=== PATIENT | male | born 1970 | race Caucasian/White ===

== ENCOUNTER 2018-11-28 09:56 | Emergency (ER) | payer BC ==
--- NOTE | 2018-11-28 11:34 | ER Document Report ---
ED Medical Screen (RME) - General Chief Complaint: Low Back Pain Stated Complaint: TESTICLE PAIN Time Seen by Provider: 11/28/18 11:32 Primary Care Provider: OTILIO FLORES MD [Primary Care Provider] - Follow up as needed Mode of Arrival: Ambulatory Information source: Patient Notes: Patient is a 47-year-old male who presents the emergency department with chief complaint of left low back pain that radiates around his left flank into his left testicle. Patient reports history of inguinal hernia in the past with repair. He states this feels similar to that. He denies any history of kidney stones, denies any hematuria. Patient has not had any nausea, vomiting, diarrhea and declines need for any pain medication. Exam: Patient calm, cooperative and in no acute distress. Ambulates without difficulty. I have greeted and performed a rapid initial assessment of this patient. A comprehensive ED assessment and evaluation of the patient, analysis of test results and completion of the medical decision making process will be conducted by additional ED providers. Dictation of this chart was performed using voice recognition software; therefore, there may be some unintended grammatical errors. TRAVEL OUTSIDE OF THE [place] IN LAST 30 DAYS: No - Related Data Allergies/Adverse Reactions: No Known Allergies Allergy (Verified 11/28/18 10:08) Past Medical History - Past Medical History Cardiac Medical History: Reports: Hx Hypertension - NOT ON MEDS AT THIS TIME Denies: Hx Heart Attack Pulmonary Medical History: Denies: Hx Asthma Neurological Medical History: Denies: Hx Cerebrovascular Accident, Hx Seizures GI Medical History: Denies: Hx Hepatitis, Hx Hiatal Hernia, Hx Ulcer Infectious Medical History: Denies: Hx Hepatitis Past Surgical History: Denies: Hx Open Heart Surgery, Hx Pacemaker Physical Exam - Vital signs Vitals: Temp Pulse Resp BP Pulse Ox 98.5 F 71 15 144/87 H 100 11/28/18 10:11 11/28/18 10:11 11/28/18 10:11 11/28/18 10:11 11/28/18 10:11 Course - Vital Signs Vital signs: Temp Pulse Resp BP Pulse Ox 98.5 F 71 15 144/87 H 100 11/28/18 10:11 11/28/18 10:11 11/28/18 10:11 11/28/18 10:11 11/28/18 10:11 Doctor's Discharge - Discharge Referrals: OTILIO FLORES MD [Primary Care Provider] - Follow up as needed
[2018-11-28 12:15] LABS: APPEARANCE,URINE CLEAR; BILIRUBIN,URINE NEGATIVE (NEGATIVE); COLOR,URINE STRAW; GLUCOSE, URINE NEGATIVE (NEGATIVE); KETONES,URINE NEGATIVE (NEGATIVE); LEUKOCYTE ESTERASE,URINE NEGATIVE (NEGATIVE); NITRITE,URINE NEGATIVE (NEGATIVE); PROTEIN,URINE NEGATIVE (NEGATIVE); UROBILINOGEN,URINE NEGATIVE mg/dL (<2.0)
--- NOTE | 2018-11-28 13:31 | ER Document Report ---
Doctor's Note Notes: 11/28/18 13:29 Radiologist called stating that patient has a testicular torsion. Patient upgraded to MITCHELL 2, charge nurse made aware so the patient can be placed expeditiously to a bed in the main side.
--- NOTE | 2018-11-28 13:38 | RADIOLOGY REPORT (SQ) ---
EXAM DESCRIPTION: U/S SCROTUM W/DOPPLER COMPLETED DATE/TIME: 11/28/2018 1:20 pm REASON FOR STUDY: Right testicular pain Pain in the right scrotum for 3 days COMPARISON: None. TECHNIQUE: Static and realtime sales scale imaging of the scrotum and testes. Selected color Doppler and spectral images recorded to document blood flow. LIMITATIONS: None. FINDINGS: RIGHT: TESTICLE: Normal size, 2.9 x 2.3 x 2.1 cm in size. Normal echotexture. We were unable to obtain colo r flow or Doppler signal from the right testicle. Patient was examined on 2 different ultrasound uni ts. EPIDIDYMIS: Normal size, 1 cm benign epididymal cyst HYDROCELE OR VARICOCELE: No. HERNIA OR EXTRA-TESTICULAR MASS: No. OTHER: No other significant finding. LEFT: TESTICLE: Normal size, 3 x 1.8 x 1.8 cm in size. Normal echotexture. Normal blood flow. No mass. EPIDIDYMIS: Normal. HYDROCELE OR VARICOCELE: No. HERNIA OR EXTRA-TESTICULAR MASS: No. OTHER: No other significant finding. IMPRESSION: Absent right testicular color flow and Doppler waveforms due to right testicular torsion . This report was called to Dr. Montoya in the emergency room 1325 hours, 11/28/2018 COMMENT: Pertinent findings on the imaging study reported as a CRITICAL RESULT to Dr. Montoya at13:25 on 11/28/2018. Category of Critical Result: Right testicular torsion TECHNICAL DOCUMENTATION: JOB ID: [id number] [employer]- All Rights Reserved Reading location - IP/workstation name: [email or web address]
--- NOTE | 2018-11-28 15:26 | RADIOLOGY REPORT (SQ) ---
EXAM DESCRIPTION: CT LTD RENAL STONE PROTOCOL ON COMPLETED DATE/TIME: 11/28/2018 2:49 pm REASON FOR STUDY: Bilateral lumbar back pain, left testicular pain COMPARISON: None. TECHNIQUE: CT scan of the abdomen and pelvis performed without intravenous or oral contrast. Images reviewed with lung, soft tissue, and bone windows. Reconstructed coronal and sagittal MPR images revi ewed. All images stored on PACS. All CT scanners at this facility use dose modulation, iterative reconstruction, and/or weight based d osing when appropriate to reduce radiation dose to as low as reasonably achievable (ALARA). [facility]: Dose Right [facility]: CareDose [facility]: Dose Right [facility]: Teradose 4D [facility]: Smart Noosh RADIATION DOSE: CT Rad equipment meets quality standard of care and radiation dose reduction techniq ues were employed. CTDIvol: 9.5 mGy. DLP: 562 mGy-cm.mGy. LIMITATIONS: None. FINDINGS: LOWER CHEST: No significant findings. No nodules or infiltrates. NON-CONTRASTED LIVER, SPLEEN, ADRENALS: Evaluation limited by lack of IV contrast. No identified sign ificant masses. PANCREAS: No masses. No peripancreatic inflammatory changes. GALLBLADDER: No identified stones by CT criteria. No inflammatory changes to suggest cholecystitis. RIGHT KIDNEY AND URETER: No suspicious masses. Assessment limited by lack of IV contrast. No signif icant calcifications. No hydronephrosis or hydroureter. LEFT KIDNEY AND URETER: No suspicious masses. Assessment limited by lack of IV contrast. No signifi cant calcifications. No hydronephrosis or hydroureter. AORTA AND RETROPERITONEUM: No aneurysm. No retroperitoneal masses or adenopathy. BOWEL AND PERITONEAL CAVITY: Pericolonic fat stranding and mucosal edema in the sigmoid colon associa roselia with diverticular. Diverticulitis. No perforation abscess. APPENDIX: Normal. PELVIS, BLADDER, AND ABDOMINAL WALL:No abnormal masses. No free fluid. Bladder normal. BONES: No significant findings. OTHER: No other significant finding. IMPRESSION: Sigmoid diverticulitis without perforation or abscess. COMMENT: Quality ID # [id number]: Final reports with documentation of one or more dose reduction techniques (e.g., Automated exposure control, adjustment of the mA and/or kV according to patient size, use of iterative reconstruction technique) TECHNICAL DOCUMENTATION: JOB ID: [id number]- All Rights Reserved Reading location - IP/workstation name: [email or web address]
[2018-11-28] MEDS ORDERED: PROMETHAZINE HCL 25 MG TABLET PO ONE (15:35)
[2018-11-28] MEDS ORDERED: CIPROFLOXACIN HCL 500 MG TABLET PO ONE (15:35)
[2018-11-28] MEDS ORDERED: OXYCODONE-ACETAMINOPHEN 5-325 MG TABLET PO ONE (15:36)
[2018-11-28] MEDS ORDERED: METRONIDAZOLE 500 MG TABLET PO ONE (15:36)
--- NOTE | 2018-11-28 16:37 | ER Document Report ---
ED GI/ - General Chief Complaint: Low Back Pain Stated Complaint: TESTICLE PAIN Time Seen by Provider: 11/28/18 11:32 Primary Care Provider: OTILIO FLORES MD [Primary Care Provider] - Follow up in 3-5 days FANNY RUELAS MD [NO LOCAL MD] - Follow up tomorrow Mode of Arrival: Ambulatory Notes: Patient has been experiencing lower lumbar back pain bilaterally for nearly a week. Recalls no unusual activity or injury. Then, on Sunday, 4 days ago, he seemed to think that that pain to the testicle got better on Sunday, but came back yesterday. It was very severe last evening and the patient took some leftover oxycodones but they did not seem to help much at all so he took a sleeping pill to sleep last night. He said that sitting seems to make it worse, such as driving a vehicle. Standing makes the pain better. Says he did some very vigorous heavy lifting and work yesterday afternoon, but does not know if that made it any better or worse. Has not had any UTI symptoms. No discomfort with urination. No blood in urine. Never had kidney stones. Has not had any recent fevers. No vomiting or diarrhea. Patient recalls a hernia that was repaired 10 or 12 years ago and felt very similar in pain to what he is experiencing now. Patient has been on testosterone injections every couple of weeks for the past 10-12 years. TRAVEL OUTSIDE OF THE [place] IN LAST 30 DAYS: No - Related Data Allergies/Adverse Reactions: No Known Allergies Allergy (Verified 11/28/18 10:08) Past Medical History - General Information source: Patient - Social History Smoking Status: Unknown if Ever Smoked Family History: Reviewed & Not Pertinent Patient has suicidal ideation: No Patient has homicidal ideation: No - Past Medical History Cardiac Medical History: Reports: Hx Hypertension - NOT ON MEDS AT THIS TIME Pulmonary Medical History: Denies: Hx Asthma Renal/ Medical History: Reports: Other - Once told he had a cystocele. Denies: Hx Kidney Stones, Hx Testicular Torsion GI Medical History: Denies: Hx Crohn's Disease, Hx Diverticulitis Past Surgical History: Reports: Hx Herniorrhaphy Review of Systems - Review of Systems Notes: REVIEW OF SYSTEMS: CONSTITUTIONAL : Denies fever. EENT: Denies eye, ear, nose or mouth or throat pain or other symptoms. CARDIOVASCULAR: Denies chest pain. RESPIRATORY: Denies cough, chest congestion, or shortness of breath. GASTROINTESTINAL: See HPI. GENITOURINARY: See HPI. Denies difficulty or painful urinating, urinary frequency, blood in urine. MUSCULOSKELETAL: Denies neck pain. Denies joint pain or swelling. SKIN: Denies rash or skin lesions. NEUROLOGICAL: Denies LOC or altered mental status. Denies headache. Denies sensory loss or motor deficits. ALL OTHER SYSTEMS REVIEWED AND NEGATIVE. Physical Exam - Vital signs Vitals: Temp Pulse Resp BP Pulse Ox 98.5 F 71 15 144/87 H 100 11/28/18 10:11 11/28/18 10:11 11/28/18 10:11 11/28/18 10:11 11/28/18 10:11 Interpretation: Normal Notes: PHYSICAL EXAMINATION: GENERAL: Well-appearing, in no acute distress. Vital signs are all normal. Does not appear to be in a large amount of pain at this time. HEAD: Atraumatic, normocephalic. EYES: Pupils equal round and reactive to light, extraocular movements intact. ENT: oropharynx clear without exudates. Moist mucous membranes. NECK: Normal range of motion, supple. LUNGS: Breath sounds clear and equal bilaterally. HEART: Regular rate and rhythm without murmurs. ABDOMEN: Soft, nontender. No guarding or rebound. No masses. Genitourinary exam: Palpated both testicles. Neither of them is swollen and neither are tender. Neither of them appear to be anything that would be the source of the patient's pain. Skin is not erythematous. No fluctuance noted. BACK: No tenderness throughout entire back. EXTREMITIES: Normal range of motion without pain. NEUROLOGICAL: Normal speech, normal gait. Normal sensory, motor, and reflex exams. Awake, alert, and oriented x3. Cranial nerves normal. PSYCH: Normal mood, normal affect. SKIN: Warm, dry, no rashes. Course - Re-evaluation Re-evalutation: 11/28/18 18:40 Patient's ultrasound showed torsion of the right testicle and a normal left testicle. Radiology was concerned about the findings not matching with the complaint and did the same examination with a second ultrasound machine and got the same results. The radiologist is certain that the right testicle has a torsion in the left one is normal. I opted to do a CT scan of the abdomen and pelvis on the possibility that the patient might have a left renal calculus that is causing referred pain to the testicle, which is a known situation and I have seen many times. Patient CT scan shows diverticulitis of the sigmoid colon! Patient is being started on metronidazole 500 mg twice a day and Cipro 500 mg twice a day for the next 10 days. 11/28/18 18:43 Went over all the findings with the patient and his . Told the patient that I do not see how he could be experiencing pain from the either testicle because they are completely normal to examine without any pain on touching or movement, etc. The pain in the left testicle but the right testicle being torsed is only likely if the patient has an old or chronic torsion of the right testicle. Radiologist suggested that possibility and also the possibility that the patient may be having intermittent torsion left testicle. I made the patient an appointment to see Dr. Ruelas, urologist in [place], tomorrow at 1:15 PM. Patient was provided with all the documents from his visit here today. I stressed to him the importance of keeping that appointment even though the pain that he has been experiencing is likely from the diverticulitis we have discovered. He does have evidence of a torsion of the right testicle, which is likely not viable, and he needs to have that evaluated by a urologist. Patient was advised to return if his pain worsens significantly, if he develops severe vomiting and cannot keep down medications, or if he starts running significant fevers, more than 100 degrees. - Vital Signs Vital signs: Temp Pulse Resp BP Pulse Ox 97.9 F 77 18 134/88 H 100 11/28/18 16:50 11/28/18 16:50 11/28/18 16:50 11/28/18 16:50 11/28/18 16:50 - Laboratory Laboratory results interpreted by me: 11/28/18 11:58 Urine Ascorbic Acid 20 H Discharge - Discharge Clinical Impression: Left testicular pain, Torsion of right testicle, Sigmoid diverticulitis Condition: Stable Disposition: HOME, SELF-CARE Additional Instructions: Testicular Pain Sometimes we can't prove the exact cause of testicle pain. Pain in the testicle can be caused by many different problems, including viral infections of the testicle, urinary tract infection, kidney stones, inflammation of the epididymis (the sac behind the testicle), hernia, dilated veins in the scrotum, or subtle injury. The most serious causes of testicular pain are tumor or twisting of the testicle. An ultrasound exam often shows what's wrong. When the initial testing doesn't show a cause for the pain, we usually refer to a urologist. Rest. Gentle warmth may help with symptoms. It's usually helpful to wear underwear that gives good support to the testicles ("briefs" instead of "boxers"). Call the doctor or return if there is sudden worsening of pain, fever, vomiting, testicle swelling, or discoloration of the scrotum. No definite cause was found for your left testicular pain. Your ultrasound showed good blood flow into that left testicle. My examination of that testicle is normal. The ultrasound did find that you have a torsion of the right testicle, but since she do not have any pain in the right testicle, this may be an old occurrence. You have an appointment to see Dr. Ruelas, tomorrow at 1:15 PM in [place]. His address is [address] [place] [address] in [place]. I strongly recommend you go see him, even though we found that you have diverticulitis. Diverticulitis of the sigmoid colon: You have been diagnosed as having diverticulitis. This is an inflammation of a small pouch attached to the colon, called a diverticulum. Many of these small pouches can form on the colon as you get older. They are often caused by constipation. When inflamed or infected, symptoms arise -- usually abdominal pain, constipation or diarrhea, fever, and blood in the stool. Severe diverticulitis may require hospitalization. More mild cases are usually treated with antibiotics and clear liquid diet. As you improve, a diet low in residue (one which forms little stool) is prescribed. When you are better, you should eat a high-fiber diet. Stool softeners (like Metamucil) are usually recommended. Call the doctor or go to the hospital if there is increasing pain, vomiting, high fever, large amounts of blood passed, or if bowel movements cease. ABDOMINAL PAIN: There are many causes of abdominal pain. Pain can mean a serious problem requiring surgery (such as appendicitis). It can also be an innocent problem that goes away on its own (such as a viral infection). Often, time must pass to determine the cause of pain. The physician does not feel that hospitalization is necessary, at present. Things may change within the next 24 hours. Call the doctor or come back for re- examination if any problems occur, such as: (1) Pain that becomes more severe, steady, or becomes concentrated in one specific area. Also, pain that is more severe with movement or coughing. (2) Vomiting that persists or becomes more frequent. (3) Blood in the vomitus, urine, or bowel movements. Blood in the stool may have a tarry or black appearance. (4) Shaking chills or fever greater than 100 degrees F. (5) The abdomen becomes more distended or swollen. (6) Bowel movements cease. (7) Failure to improve as expected. ANTINAUSEA MEDICATION: You have been given a medication to suppress nausea and vomiting. This type of medication can be given as a shot, pill, or suppository. It will usually last for many hours. Pills and shots usually last six to eight hours, suppositories last about 12 hours. For the typical illness, only one or two doses of the medication may be necessary. Mild lightheadedness may occur. This type of medicine can cause drowsiness. Do not drive or operate dangerous machinery while under its influence. Do not mix with alcohol. See your doctor at once if you have muscle spasms or tightness, or u ncontrollable motions (particularly of the neck, mouth, or jaw). Persistent vomiting or severe lightheadedness should also be evaluated by the physician. ANTIBIOTIC THERAPY: You have been given an antibiotic prescription. It's important that you take all the medication, unless instructed otherwise by your physician. Failure to complete the entire course can result in relapse of your condition. Common side effects of antibiotics include nausea, intestinal cramping, or diarrhea. Women may develop vaginal yeast infections, and babies can get yeast (thrush) in the mouth following the use of antibiotics. Contact your physician if you develop significant side effects from this medication. Allergy to this antibiotic can result in hives, wheezing, faintness, or itching. If symptoms of allergy occur, stop the medication and call the doctor. CIPROFLOXACIN: You have been given an antibacterial agent, ciprofloxacin (Cipro). This medicine is not related to the penicillins, sulfas, cephalosporins, or tetracyclines. It is often given to patients who are allergic to these drugs. It has been chosen for you either because other drugs are not appropriate, or because of the nature of your problem. Cipro should not be taken with antacids, as these can decrease its effectiveness. It can be taken without regard to meals. CIPRO SHOULD NOT BE TAKEN BY CHILDREN, NURSING WOMEN, OR WOMEN. Although Cipro is usually well-tolerated, common side effects can include nausea and diarrhea. Contact your doctor if you experience any unusual symptoms while on this medication, such as joint pain or swelling, shortness of breath, wheezing, faintness, or hives. METRONIDAZOLE: Metronidazole (Flagyl) has been prescribed. This medication is used to kill a type of bacteria called anaerobes, and protozoan parasites such as trichomonas and Giardia. Flagyl often causes a metallic taste in the mouth and mild nausea. Do not use alcohol in any form with Flagyl (including alcohol in medication elixirs). Flagyl interacts with alcohol to cause flushing, palpitations, headache, stomach cramps, and vomiting. Do not use Flagyl if you are taking A ntabuse (disulfiram). Call the doctor at once if you develop rash, shortness of breath, itching, or lightheadedness. ORAL NARCOTIC MEDICATION: You have been given a prescription for pain control. This medication is a narcotic. It's best taken with food, as nausea can result if taken on an empty stomach. Don't operate machinery or drive within six hours of taking this medication. Do not combine this medicine with alcohol, or with any medication which can cause sedation (such as cold tablets or sleeping pills) unless you get permission from the physician. Narcotics tend to cause constipation. If possible, drink plenty of fluids and eat a diet high in fiber and fruits. FOLLOW-UP CARE: If you have been referred to a physician for follow-up care, call the physicians office for an appointment as you were instructed or within the next two days. If you experience worsening or a significant change in your symptoms, notify the physician immediately or return to the Emergency Department at any time for re-evaluation. Return for reevaluation if your pain worsens, you develop vomiting and cannot keep down your medications, you start running high fevers. Prescriptions: Oxycodone HCl/Acetaminophen [Percocet 5-325 mg Tablet] 1 - 2 tab PO Q6HP PRN #15 tablet PRN Reason: Ciprofloxacin HCl [Cipro 500 mg Tablet] 500 mg PO BID #20 tablet Metronidazole [Flagyl 500 mg Tablet] 500 mg PO BID #20 tablet Ondansetron [Zofran Odt 4 mg Tablet] 1 - 2 tab PO Q4H PRN #15 tab.rapdis PRN Reason: For Nausea/Vomiting Referrals: OTILIO FLORES MD [Primary Care Provider] - Follow up in 3-5 days FANNY RUELAS MD [NO LOCAL MD] - Follow up tomorrow
[2018-11-28 16:51] VITALS: BP 134/88
== END 2018-11-28 16:51 | disposition home or self-care (01) ==
LOC: ER 09:56
DX: N50.812 Left testicular pain (principal); N44.00 Torsion of testis, unspecified; K57.32 Diverticulitis of large intestine without perforation or abscess without bleeding; M54.5 Low back pain
CPT/HCPCS: 76380; 76870; 81001; 93976; 99284

== ENCOUNTER → 2019-11-28 | Outpatient (CLI) | payer BC ==
[2019-11-28 16:38] LABS: ABSOLUTE EOSINOPHILS # (AUTO) 0.1 10^3/uL (0.0-0.6); ABSOLUTE LYMPHOCYTES (AUTO) 1.6 10^3/uL (0.5-4.7); ABSOLUTE MONOCYTES (AUTO) 0.5 10^3/uL (0.1-1.4); ABSOLUTE NEUT (AUTO) 4.7 10^3/uL (1.7-8.2); BASOPHILS % (AUTO) 0.4 % (0-2); EOSINOPHILS % (AUTO) 0.9 % (0-6); HEMATOCRIT 47.3 % (37.9-51.0); HEMOGLOBIN 16.4 g/dL (13.5-17.0); LYMPHOCYTES % (AUTO) 23.3 % (13-45); MEAN CORPUSCULAR HGB CONC 34.6 g/dL (32.0-36.0); MEAN CORPUSCULAR VOLUME 92 fl (80-97); MONOCYTES % (AUTO) 6.8 % (3-13); PLATELET COUNT 231 10^3/uL (150-450); RED BLOOD COUNT 5.12 10^6/uL (4.35-5.55); RED CELL DISTRIBUTION WIDTH 13.8 % (11.5-14.0); SEGMENTED NEUTROPHILS % (AUTO) 68.6 % (42-78); TOTAL CELLS COUNTED % (AUTO) 100 %; WHITE BLOOD COUNT 6.9 10^3/uL (4.0-10.5)
[2019-11-28 17:01] LABS: ANION GAP 12 (5-19); BLOOD UREA NITROGEN 10 mg/dL (7-20); CALCIUM 9.9 mg/dL (8.4-10.2); CARBON DIOXIDE 27 mmol/L (22-30); CHLORIDE 101 mmol/L (98-107); GLUCOSE 90 mg/dL (75-110); POTASSIUM 4.1 mmol/L (3.6-5.0)
[2019-11-30 07:37] LABS: HEPATITS B SURFACE ANTIGEN Negative (Negative)
[2019-11-30 13:47] LABS: HEPATITIS C VIRUS ANTIBODY <0.1 s/co ratio (0.0-0.9)
== END ==
LOC: OD 15:01
PROVIDERS: ATTEND Physician Assistant Medical
DX: L40.0 Psoriasis vulgaris (principal)
CPT/HCPCS: 36415; 80048; 80074; 85025; 86480

== ENCOUNTER → 2019-12-25 | Outpatient (CLI) | payer BC ==
--- NOTE | 2019-12-25 14:42 | RADIOLOGY REPORT (SQ) ---
EXAM DESCRIPTION: SHOULDER RIGHT 2 OR MORE VIEWS COMPLETED DATE/TIME: 12/25/2019 1:53 pm REASON FOR STUDY: PAIN,DECREASED ROM COMPARISON: None. NUMBER OF VIEWS: [facility] right shoulder LIMITATIONS: None. FINDINGS: Mild AC and glenohumeral DJD with slight spurring. No fracture or subluxation or dislocat ion or bone lesion. OTHER: Right lung clear. IMPRESSION: DJD. TECHNICAL DOCUMENTATION: JOB ID: [id number] Reading location - IP/workstation name: [email or web address]
== END ==
LOC: OD 13:31
PROVIDERS: ATTEND Obstetrics & Gynecology
DX: M25.511 Pain in right shoulder (principal); M25.612 Stiffness of left shoulder, not elsewhere classified

== ENCOUNTER → 2020-08-30 | Outpatient (CLI) | payer BC ==
[2020-08-30 16:17] LABS: ABSOLUTE EOSINOPHILS # (AUTO) 0.1 10^3/uL (0.0-0.6); ABSOLUTE LYMPHOCYTES (AUTO) 1.6 10^3/uL (0.5-4.7); ABSOLUTE MONOCYTES (AUTO) 0.4 10^3/uL (0.1-1.4); ABSOLUTE NEUT (AUTO) 5.6 10^3/uL (1.7-8.2); BASOPHILS % (AUTO) 0.4 % (0-2); EOSINOPHILS % (AUTO) 1.8 % (0-6); HEMATOCRIT 49.1 % (37.9-51.0); HEMOGLOBIN 17.1 g/dL (13.5-17.0); MEAN CORPUSCULAR HEMOGLOBIN 32.1 pg (27.0-33.4); MEAN CORPUSCULAR HGB CONC 34.8 g/dL (32.0-36.0); MEAN CORPUSCULAR VOLUME 92 fl (80-97); MONOCYTES % (AUTO) 5.6 % (3-13); PLATELET COUNT 214 10^3/uL (150-450); RED BLOOD COUNT 5.31 10^6/uL (4.35-5.55); RED CELL DISTRIBUTION WIDTH 13.5 % (11.5-14.0); SEGMENTED NEUTROPHILS % (AUTO) 72.2 % (42-78); TOTAL CELLS COUNTED % (AUTO) 100 %; WHITE BLOOD COUNT 7.8 10^3/uL (4.0-10.5)
[2020-08-30 16:35] LABS: ALBUMIN 4.9 g/dL (3.5-5.0); ALKALINE PHOSPHATASE 70 U/L (38-126); ANION GAP 13 (5-19); ASPARTATE AMINO TRANSFERASE 26 U/L (17-59); BILIRUBIN,DIRECT 0.1 mg/dL (0.0-0.4); BILIRUBIN,TOTAL 0.8 mg/dL (0.2-1.3); BLOOD UREA NITROGEN 15 mg/dL (7-20); CALCIUM 9.6 mg/dL (8.4-10.2); CARBON DIOXIDE 26 mmol/L (22-30); CHLORIDE 100 mmol/L (98-107); GLUCOSE 81 mg/dL (75-110); TOTAL PROTEIN 7.3 g/dL (6.3-8.2)
== END ==
LOC: OD 14:42
PROVIDERS: ATTEND Physician Assistant
DX: I10 Essential (primary) hypertension (principal); Z11.2 Encounter for screening for other bacterial diseases
CPT/HCPCS: 36415; 80053; 85025; 87070

== ENCOUNTER → 2020-11-15 | Outpatient (CLI) | payer BC ==
[~2020-11-15] MED LIST: COVID-19 VACCINE (PFIZER)/PF 30 MCG/0.3 ML VIAL IM ONE; EPINEPHRINE INJ/PF 1 MG/1 ML AMPULE IM PRN
== END ==
LOC: EMPHEALTH 15:15
PROVIDERS: ATTEND Internal Medicine
DX: Z23 Encounter for immunization (principal)
CPT/HCPCS: 91300